=== PATIENT | female | born 1940 | race Caucasian/White ===

== ENCOUNTER 2020-02-07 11:59 | Outpatient (CLI) | payer OTHER, SELFPAY ==
[2020-02-07 12:30] LABS: Basophils Absolute Auto 0.1 K/mm3 (0.0-0.1); Basophils Percent Auto 0.8 % (0.2-1.2); Eosinophils Absolute Auto 0.1 K/mm3 (0-0.3); Eosinophils Percent Auto 1.3 % (0-4.4); Hematocrit 40.1 % (37.0-47.0); Immature Granulocyte Absolute 0.01 K/mm3 (0.00-0.031); Immature Granulocyte Percent A 0.2 % (0-0.5); Lymphocytes Absolute Auto 2.76 K/mm3 (0.9-3.2); Lymphocytes Percent Auto 45.5 % (18.3-44.2); Mean Corpuscular HGB Conc 32.4 g/dl (32-36); Mean Corpuscular Volume 92.4 fl (80-100); Mean Platelet Volume 9.6 fl (7.4-10.4); Monocytes Absolute Auto 0.7 K/mm3 (0.1-0.6); Monocytes Percent Auto 10.7 % (2.6-8.5); Neutrophils Absolute Auto 2.5 K/mm3 (1.3-6.7); Neutrophils Percent Auto 41.5 % (45.5-73.1); Platelet Count Result 251 k/mm3 (150-375); Red Blood Count 4.34 M/mm3 (4.2-5.4); Red Cell Distribution Width 13.1 % (11.5-14.5); White Blood Count 6.1 K/mm3 (4.5-10.0)
[2020-02-07 12:48] LABS: Alanine Aminotransferase 10 U/L (4-35); Albumin Level 4.5 g/dL (3.5-5.1); Alkaline Phosphatase 75 U/L (38-126); Aspartate Amino Transferase 25 U/L (14-36); Bilirubin,Total 0.5 mg/dL (0.2-1.3); Blood Urea Nitrogen 21 mg/dL (7-17); Calcium 9.4 mg/dL (8.4-10.2); Carbon Dioxide 29 mmol/L (22-30); Chloride 101 mmol/L (98-107); Cholesterol 257 mg/dL (0-200); Estimated Glomerular Filt Rate 48; Glucose 107 mg/dL (65-105); HDL Direct 38 mg/dL; Potassium 4.2 mmol/L (3.4-5.0); Sodium 139 mmol/L (137-145); Triglycerides 229 mg/dL (<150)
[2020-02-07 13:04] LABS: LDL Cholesterol Direct 151 mg/dL
[2020-02-07 13:20] LABS: Vitamin D 25 Hydroxy 36.5 ng/mL
== END 2020-02-07 12:00 | disposition home or self-care (01) ==
PROVIDERS: PCP Internal Medicine; Visit Provider Internal Medicine
DX: E78.5 Hyperlipidemia, unspecified (principal); R79.89 Other specified abnormal findings of blood chemistry; Z79.899 Other long term (current) drug therapy; F32.9 Major depressive disorder, single episode, unspecified
CPT/HCPCS: 36415; 80053; 80061; 82306; 84443; 85025

== ENCOUNTER 2023-05-03 15:11 | Emergency (ER) | payer OTHER, SELFPAY ==
--- NOTE | ~2023-05-03 | XR_ITS ---
EXAMINATION: XR lumbar spine 2-3V DATE: 05/03/2023 17:20 INDICATION: Low back pain TECHNIQUE: Anteroposterior and lateral views of the lumbar spine, and cone-down lateral view of the l umbosacral junction were obtained. COMPARISON: None. FINDINGS: There is an age-indeterminate anterior compression fracture of L1 with 20% loss of anterior vertebral body height. The remaining lumbar vertebral body heights are maintained. There is severe l oss of intervertebral disc space height at L2-3. Bone alignment is normal. 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 IMPRESSION: 1. Age-indeterminate anterior compression fracture of L1 with 20% loss of vertebral body height. 2. Severe lumbar spondylosis at L2-3. Reviewed, dictated and finalized at location F. IMPRESSION: 1. Age-indeterminate anterior compression fracture of L1 with 20% loss of verte bral body height. 2. Severe lumbar spondylosis at L2-3.
[2023-05-03 15:34] VITALS: BP 138/72; PULSE 61; RESP 18; TEMP 36.7; O2SAT 97
--- NOTE | 2023-05-03 17:48 | ED.BACK ---
HPI - Back Pain/Injury General Chief Complaint: Back Pain/Injury Stated Complaint: back injury/fall Time Seen by Provider: 05/03/23 16:56 History of Present Illness HPI Narrative: 82-year-old female presents to the emergency room for evaluation of a back injury. Patient states that she was removing an end table from her trunk of her vehicle when she attempted to close the trunk door and fell backwards landing on her buttocks. Patient states that she was ambulatory following the incident. Denies any radiating pain. No saddle anesthesia. No difficulty or changes with bowel or bladder habits. Patient states that she took a 400 mg of ibuprofen prior to arrival and achieved moderate pain relief. Related Data Home Medications Medication Instructions Recorded Confirmed ergocalciferol (vitamin D2) 50 mcg 50 mcg PO DAILY 09/02/22 01/03/23 (2,000 unit) capsule escitalopram oxalate 20 mg tablet 20 mg PO DAILY 09/02/22 01/03/23 levothyroxine 50 mcg capsule 50 mcg PO DAILY 09/02/22 01/03/23 mirtazapine 7.5 mg tablet 7.5 mg PO QHS 09/02/22 01/03/23 Allergies Allergy/AdvReac Type Severity Reaction Status Date / Time No Known Allergies Allergy NONE Verified 05/03/23 15:39 Review of Systems Review of Systems: CONSTITUTIONAL: Denies fever, chills, or sweats. EYES: Denies visual changes, redness, or discharge. ENT: Denies rhinorrhea, congestion, sore throat, or otalgia. CARDIOVASCULAR: Denies chest pain, palpitations, or edema. RESPIRATORY: Denies cough or dyspnea. GASTROINTESTINAL: Denies abdominal pain, nausea, vomiting, or diarrhea. GENITOURINARY: Denies dysuria or hematuria. SKIN: Denies rash or itching. MUSCULOSKELETAL: Reports low back pain NEUROLOGIC: Denies headache, numbness, dizziness, or weakness. PSYCHIATRIC: Denies anxiety or depression. [facility] Family History Family History Father Heart disease Mother Colon cancer Social History Social History Smoking status: Never smoker Alcohol intake: never Lack of Transportation: No Lack of Food: Never True Current Housing: I Have Housing Concerned About Future Housing: No Difficulty Paying Gas/Electric Bills: No Difficulty Paying for Meds: No Currently Unemployed: No Education: High School Diploma/GED Difficulty w/ Childcare or Family Care: No Exam Narrative: GENERAL: Well-appearing, well-nourished, no physical limitations, and in no acute distress. HEAD: Normocephalic, atraumatic. EYES: Conjunctivae normal, PERRLA and EOMI. CHEST: Clear to auscultation. No respiratory distress. No wheezes rales or rhonchi. HEART: Regular rate and rhythm. No murmur heard. Normal peripheral pulses. BACK: Midline lumbar tenderness at L5, no step-offs, no bony abnormality; FROM EXTREMITIES: Normal range of motion. No edema. No clubbing or cyanosis SKIN: Warm, dry, no rash. No noted wounds NEURO: No focal deficits. Alert and oriented x3. MAEW. CN's II-XI intact bilaterally, antalgic gait. Hyperreflexia right patellar DTR PSYCH: Cooperative. Normal mood and affect. Course Course Emergency Course: 1800: Discussed case with neurosurgeon Dr. Candelario regarding patient's radiology findings. Dr. Conner clears patient for regular activity. Vital Signs Vital signs: Vital Signs Temperature 36.7 C 05/03/23 15:34 Pulse Rate 61 05/03/23 15:34 Respiratory Rate 18 05/03/23 15:34 Blood Pressure 138/72 05/03/23 15:34 Pulse Oximetry 97 05/03/23 15:34 Oxygen Delivery Room Air 05/03/23 15:34 Temperature 36.7 C 05/03/23 15:34 Pulse Rate 61 05/03/23 15:34 Respiratory Rate 18 05/03/23 15:34 Blood Pressure 138/72 05/03/23 15:34 Pulse Oximetry 97 05/03/23 15:34 Oxygen Delivery Room Air 05/03/23 15:34 Discharge Plan Discharge Clinical Impression: Contusion of lower back Qualifiers: Encounter type: initial encoun
[2023-05-03 18:09] VITALS: BP 132/78; PULSE 68; RESP 16; O2SAT 100
== END 2023-05-03 18:11 | disposition home or self-care (01) ==
PROVIDERS: Emergency Provider Nurse Practitioner Family; PCP Family Medicine
DX: S30.0XXA Contusion of lower back and pelvis, initial encounter (principal); W18.39XA Other fall on same level, initial encounter
CPT/HCPCS: 72100; 99283

== ENCOUNTER 2023-05-18 17:01 | Outpatient (CLI) | payer OTHER, SELFPAY ==
--- NOTE | ~2023-05-18 | CT_ITS ---
EXAMINATION: CT lumbar spine wo con DATE: 05/18/2023 17:18 INDICATION: Dorsalgia, unspecified TECHNIQUE: Computed tomography (CT) of the lumbar spine was performed without intravenous contrast. Rashida he dose-length product (DLP) was 511.05 mGy-cm. Iterative reconstruction was used. COMPARISON: Radiographs dated 05/03/2023 FINDINGS: There has been interval worsening of the previously described L1 fracture. CT demonstrates the fracture to reflect a burst fracture with 5 mm of retropulsion of fracture fragments into the dayo tral spinal canal. There is essentially complete loss of height in the mid vertebral body. There is s evere loss of intervertebral disc space height at L2-3. There are 5 mm of retrolisthesis of L2 on L3. There is a subtle fracture of the left L1 transverse process.. IMPRESSION: 1. L1 burst fracture with significant interval worsening since the recent comparison examination. Octavio gical evaluation is recommended. Reviewed, dictated and finalized at location F. IMPRESSION: 1. L1 burst fracture with significant interval worsening since the recent josiane rison examination. Surgical evaluation is recommended.
== END 2023-05-18 17:02 | disposition home or self-care (01) ==
LOC: ANHIMG 17:04
PROVIDERS: PCP Family Medicine; Visit Provider Family Medicine
DX: S32.011A Stable burst fracture of first lumbar vertebra, initial encounter for closed fracture (principal); R29.898 Other symptoms and signs involving the musculoskeletal system; T14.90XA Injury, unspecified, initial encounter
CPT/HCPCS: 72131

== ENCOUNTER 2023-05-18 17:43 | Emergency (ER) | payer OTHER, SELFPAY ==
[2023-05-18 17:46] VITALS: BP 142/67; PULSE 100; RESP 16; TEMP 36.8; O2SAT 96
[2023-05-18 19:24] VITALS: PULSE 57; RESP 16; O2SAT 96
[2023-05-18 20:00] VITALS: PULSE 56; RESP 26; O2SAT 100
--- NOTE | 2023-05-18 20:02 | ED.GENADULT ---
HPI - General Adult General Chief complaint: Recheck/Abnormal Lab/Rx Stated complaint: sent from radiology for f/u Time Seen by Provider: 05/18/23 19:09 History of Present Illness HPI narrative: Patient 82-year-old female who presents emergency department with chief complaint of abnormal CT scan. Patient recently was seen in the emergency department and had a ground-level fall and was found to have a compression fracture at the L1 area was about 20% patient had no bowel or bladder dysfunction no paresthesias no foot drop. The patient has been taking tramadol as an outpatient followed up with her primary care provider who today decided to order CT scan as the patient was continued to have pain the patient has no new neurological symptoms no focal weakness no saddle anesthesia no bowel or bladder incontinence or retention patient Related Data Home Medications Medication Instructions Recorded Confirmed ergocalciferol (vitamin D2) 50 mcg 50 mcg PO DAILY 09/02/22 05/18/23 (2,000 unit) capsule escitalopram oxalate 20 mg tablet 20 mg PO DAILY 09/02/22 05/18/23 levothyroxine 50 mcg capsule 50 mcg PO DAILY 09/02/22 05/18/23 mirtazapine 7.5 mg tablet 7.5 mg PO QHS 09/02/22 05/18/23 Allergies Allergy/AdvReac Type Severity Reaction Status Date / Time No Known Allergies Allergy NONE Verified 05/18/23 19:18 Review of Systems Review of Systems: A 10 system review of systems was completed on the patient and is negative except for what is stated in the HPI. Nursing and ancillary documentation was reviewed. [facility] Family History Family History Father Heart disease Mother Colon cancer Social History Social History Smoking status: Never smoker Alcohol intake: never Lack of Transportation: No Lack of Food: Never True Current Housing: I Have Housing Concerned About Future Housing: No Difficulty Paying Gas/Electric Bills: No Difficulty Paying for Meds: No Currently Unemployed: No Education: High School Diploma/GED Difficulty w/ Childcare or Family Care: No Exam Narrative: GENERAL: Well-appearing, well-nourished, and in no acute distress. HEAD: Normocephalic, atraumatic. EYES: PERRLA and EOMI. ENT: Nares clear, no rhinorrhea or epistaxis. Mucous membranes moist. NECK: Supple. CHEST: Clear to auscultation. No respiratory distress. HEART: Regular rate and rhythm. No murmur heard. Normal peripheral pulses. ABDOMEN: Soft, nontender, nondistended, normal active bowel sounds. EXTREMITIES: Normal range of motion. No edema. SKIN: Warm, dry, no rash. NEURO: No focal deficits. Alert and oriented x3. No saddle anesthesia no foot drop PSYCH: Normal mood and affect. Course Vital Signs Vital signs: Vital Signs Temperature 36.8 C 05/18/23 17:46 Pulse Rate 100 05/18/23 17:46 Respiratory Rate 16 05/18/23 17:46 Blood Pressure 142/67 H 05/18/23 17:46 Pulse Oximetry 96 05/18/23 17:46 Oxygen Delivery Room Air 05/18/23 17:46 Temperature 36.8 C 05/18/23 17:46 Pulse Rate 100 05/18/23 17:46 Respiratory Rate 16 05/18/23 17:46 Blood Pressure 142/67 H 05/18/23 17:46 Pulse Oximetry 96 05/18/23 17:46 Oxygen Delivery Room Air 05/18/23 17:46 Medical Decision Making MDM Narrative Medical decision making narrative: The CT scan was reviewed that showed a transverse process fracture of L1 and a compression fracture/burst fracture of L1 No signs of acute nerve compression no saddle anesthesia no urinary retention no foot drop The case was discussed with neurosurgery on-call who stated the patient would benefit from a brace and the patient could either follow-up as an outpatient or if she was having severe pain the patient could be admitted to the hospitalist service neurosurgery would consult on the patient and would attempt to get a brace placed
[2023-05-18 20:15] VITALS: PULSE 61; RESP 14
== END 2023-05-18 20:44 | disposition home or self-care (01) ==
PROVIDERS: Emergency Provider Emergency Medicine; PCP Family Medicine
DX: S32.011A Stable burst fracture of first lumbar vertebra, initial encounter for closed fracture (principal); W18.30XA Fall on same level, unspecified, initial encounter
CPT/HCPCS: 72131; 99281

== ENCOUNTER 2023-07-04 13:55 | Outpatient (CLI) | payer OTHER, SELFPAY ==
[2023-07-04 18:29] LABS: Alanine Aminotransferase 13 U/L (6-35); Albumin Level 4.2 g/dL (3.5-5.1); Alkaline Phosphatase 86 U/L (38-126); Anion Gap 10 mmol/L (8-16); Aspartate Amino Transferase 43 U/L (14-36); Bilirubin,Total 0.5 mg/dL (0.2-1.3); Blood Urea Nitrogen 17 mg/dL (7-17); Calcium 9.2 mg/dL (8.4-10.2); Carbon Dioxide 30 mmol/L (22-30); Chloride 100 mmol/L (98-107); Cholesterol 245 mg/dL (0-200); Estimated Glomerular Filt Rate 53; Glucose 94 mg/dL (65-110); HDL Direct 40 mg/dL; Potassium 3.9 mmol/L (3.4-5.0); Sodium 140 mmol/L (137-145); Triglycerides 156 mg/dL (<150)
[2023-07-04 18:40] LABS: LDL Cholesterol Direct 141 mg/dL
[2023-07-04 19:17] LABS: Free T4 Free Thyroxine 1.58 ng/mL (0.78-2.19); Vitamin D 25 Hydroxy 34.7 ng/mL
== END 2023-07-04 13:56 | disposition home or self-care (01) ==
LOC: ANHGOSHLAB 13:57
PROVIDERS: PCP Family Medicine; Visit Provider Family Medicine
DX: E03.9 Hypothyroidism, unspecified (principal); E55.9 Vitamin D deficiency, unspecified; Z13.220 Encounter for screening for lipoid disorders; Z13.228 Encounter for screening for other metabolic disorders
CPT/HCPCS: 36415; 80053; 80061; 82306; 84439; 84443

== ENCOUNTER 2023-08-07 12:18 | Outpatient (CLI) | payer OTHER, SELFPAY ==
--- NOTE | ~2023-08-07 | XR_ITS ---
EXAMINATION: XR thoracolumbar INDICATION: Stable burst fracture of unspecified lumbar vertebra TECHNIQUE: Flexion and extension views of the thoracolumbar spine are obtained. COMPARISON: 05/10/2023 FINDINGS: There is a stable L1 burst fracture. No hypermobility of the spine is noted with flexion or extension. No additional fracture is identified. There is severe loss of intervertebral disc space h eight at L2-3. IMPRESSION: 1. Stable L1 burst fracture. Reviewed, dictated and finalized at location B. UNICATION MANAGER
== END 2023-08-07 12:19 | disposition home or self-care (01) ==
LOC: ANHIMG 12:19
PROVIDERS: PCP Family Medicine; Visit Provider Physician Assistant
DX: S32.001D Stable burst fracture of unspecified lumbar vertebra, subsequent encounter for fracture with routine healing (principal); X58.XXXD Exposure to other specified factors, subsequent encounter
CPT/HCPCS: 72080

== ENCOUNTER 2023-08-12 12:28 | Outpatient (CLI) | payer OTHER, SELFPAY ==
--- NOTE | ~2023-08-12 | MR_ITS ---
EXAMINATION: MR lumbar spine wo con DATE: 08/12/2023 13:14 INDICATION: Stable burst fracture of unspecified lumbar vertebra. Low back pain. TECHNIQUE: Magnetic resonance imaging (MRI) of the lumbar spine was performed without intravenous con trast. Sequences included sagittal T2-weighted FSE, sagittal T2-weighted FS FSE, sagittal T1-weighted FSE, and axial T2-weighted FSE. COMPARISON: CT lumbar spine 05/18/2023 FINDINGS: There is a burst fracture of L1 with greater than 4/5 loss of height, retropulsion of bone 7 mm into central spinal canal, edema-like marrow signal intensity, mild central canal stenosis, and focal kyphosis. There is 6 mm retrolisthesis of L2 on L3. There is severely decreased disc height at L2-L3 and moderately decreased disc height at L3-L4 with endplate remodeling. The distal spinal cord signal intensity is normal. The conus medullaris is at L1-L2. The following disc levels are specifica lly discussed: L1-L2: The disc is mildly bulging. There is moderate bilateral facet joint osteoarthritis. There is m ild bilateral neural foraminal stenosis. There is no central canal stenosis. L2-L3: The disc is bulging and has an annular fissure. There is mild bilateral facet joint osteoarthr itis. There is mild bilateral neural foraminal stenosis. There is mild central canal stenosis. L3-L4: The disc is bulging and has an annular fissure. There is moderate bilateral facet joint osteoa rthritis. There is mild bilateral neural foraminal stenosis. There is mild central canal stenosis. L4-L5: The disc is bulging and has an annular fissure. There is mild right and moderate left facet april int osteoarthritis. There is mild bilateral neural foraminal stenosis. There is mild central canal st enosis. L5-S1: The disc is bulging and has an annular fissure. There is severe bilateral facet joint osteoart hritis. There is mild bilateral neural foraminal stenosis. There is mild central canal stenosis. IMPRESSION: 1. Subacute L1 burst fracture, stable from 05/18/2023. 2. Severe lumbar spondylosis. Reviewed, dictated and finalized at location E. OFABRICATION ENGINEER MANAGER
== END 2023-08-12 12:29 | disposition home or self-care (01) ==
PROVIDERS: PCP Family Medicine; Visit Provider Physician Assistant
DX: S32.001A Stable burst fracture of unspecified lumbar vertebra, initial encounter for closed fracture (principal); M43.06 Spondylolysis, lumbar region
CPT/HCPCS: 72148

== ENCOUNTER 2023-09-28 13:58 | Outpatient (CLI) | payer OTHER, SELFPAY ==
--- NOTE | ~2023-09-28 | CT_ITS ---
EXAMINATION: CT lumbar spine wo con DATE: 09/28/2023 14:24 INDICATION: Stable burst fracture of unspecified lumbar vertebra. TECHNIQUE: Computed tomography (CT) of the lumbar spine was performed without intravenous contrast. A utomated exposure control and iterative reconstruction technique were employed. The dose-length produ ct was 472.64 mGy-cm. COMPARISON: CT lumbar spine 05/18/2023, MRI 08/12/2023 FINDINGS: There is a burst fracture of L1 with vertebral plana and 8 mm retrolisthesis of bone into c entral spinal canal. There is 11 degrees dextroscoliosis and focal kyphosis at L1. There is 5 mm retr olisthesis of L2 on L3. There is mild chronic anterior wedging of L2 vertebral body. There is mildly decreased disc height at L1-L2, severely decreased disc height at L2-L3, and mildly decreased disc at L3-L4. The following disc levels are specifically discussed: T12-L1: The disc does not extend beyond the endplate margin. There is mild bilateral facet joint oste oarthritis. There is mild left neural foraminal stenosis. There is moderate central canal stenosis. L1-L2: The disc is bulging. There is mild bilateral facet joint osteoarthritis. There is no neural fo raminal stenosis. There is mild central canal stenosis. L2-L3: The disc does not extend beyond the endplate margin. There is mild bilateral facet joint osteo arthritis. There is mild bilateral neural foraminal stenosis. There is mild central canal stenosis. L3-L4: The disc is bulging. There is moderate right and mild left facet joint osteoarthritis. There i s mild bilateral neural foraminal stenosis. There is mild central canal stenosis. L4-L5: The disc is bulging. There is severe right and moderate left facet joint osteoarthritis. There is mild bilateral neural foraminal stenosis. There is mild central canal stenosis. L5-S1: The disc is bulging. There is severe bilateral facet joint osteoarthritis. There is mild bilat eral neural foraminal stenosis. There is mild central canal stenosis. IMPRESSION: 1. Subacute L1 burst fracture, worsened from 05/18/2023. 2. Severe lumbar spondylosis. Reviewed, dictated and finalized at location E. HIATRY INSTRUCTOR
== END 2023-09-28 13:59 | disposition home or self-care (01) ==
PROVIDERS: PCP Family Medicine; Visit Provider Neurological Surgery
DX: S32.011A Stable burst fracture of first lumbar vertebra, initial encounter for closed fracture (principal); M43.06 Spondylolysis, lumbar region
CPT/HCPCS: 72131

== ENCOUNTER 2025-04-16 13:08 | Outpatient (CLI) | payer OTHER, SELFPAY ==
--- OUTSIDE RECORDS SUMMARY | 2025-04-16 13:20 | XMS_ITS | Patient Health Record ---
Author Organization [facility] [place] Address [address] [place] [address] Care Team Providers Care Analytics Developer Name Role Phone Luis Alexander DO Primary Care Provider Unavailab Marcell Ghosh Unavailable [phone] Allergies No Known Allergies Reason For Referral No Information Medications Medication SIG (Take, Route, Frequency, Duration) Notes Start Date End Date Status Mirtazapine 7.5 MG Tablet 1 tablet at be dtime Oral Once a day; Duration: 90 days Active Escitalopram Oxalate 20 MG Tablet 1 tablet Oral Once a day; Duration: 90 days Active Levothyroxine Sodium 50 MCG Tablet Oral 12/11/2023 Not-Taking Ergocalciferol 1.25 MG (11974 UT) Capsule Oral 12/11/2023 Not-Takin g traMADol HCl 50 MG Tablet Oral 12/11/2023 Not-Taking Immunizations Vaccine Route Administration Date Status Comme nts Influenza, high dose seasonal Unknown 07/03/2018 Admini stered Influenza, high dose seasonal Unknown 05/21/2019 Admini stered Influenza, high dose seasonal Unknown 09/25/2019 Admini stered Influenza, high-dose seasona l, quadrivalent, preservative free >65 yrs Unknown 05/21/2020 Administered Pfizer Bion[employer] Covid-19 Vac cine 2nd dose Unknown 11/20/2020 Administered Pfizer [employer] Covid-19 Vac cine 2nd dose Unknown 12/11/2020 Administered Pfizer [employer] Covid-19 Vac cine 2nd dose Unknown 09/02/2021 Administered Pneumococcal conjugate PCV 13 Unknown 05/21/2019 Admini stered Pneumococcal polysaccharide PPV23 Unknown 05/21/2020 Ad ministered Td (adult) preservative free Unknown 04/13/2020 Adminis tered Social History Tobacco Use: Social History Observation Description Date Details (start date - stop date) Never Smoker NA - NA Sex Assigned At : Social History Observation Description Sex Assigned At Female Social History Tobacco Use: Social Info Question Answer Notes Tobacco Control (Standard) Tobacco use: Nonsmoker Additional Details Category Social Info Options Details Migrated Social History Migrated Social History Alcohol Intake: None 03/12/2020,Tobacco Years: Former smoker 03/12/2020 Problems Problem Type SNOMED Code ICD Code Onset Dates Problem Status W/U Status Risk Notes Problem Hypothyroidism (42032161) Hypothyroidism, unspecified (E03.9) 4 Active confirmed Problem Major depressive disorder, recurrent, mild (F33.0) 4 Active confirmed Problem Primary insomnia (5736956) Primary insomnia (F51.01) 4 Active confirmed Vital Signs Heart Rate 75 /min 11/20/2024 Height-cm 160.02 cm 11/20/2024 Blood pressure diastolic 85 mm Hg 11/20/2024 Weight-kg 62.6 kg 11/20/2024 Height 63.00 in 11/20/2024 Blood pressure systolic 137 mm Hg 11/20/2024 Weight 138 lbs 11/20/2024 BMI 24.44 kg/m2 11/20/2024 Encounters Encounter Location Date Provider Diagnosis [facility] [place] [address] [address] 04/25/2024 Marcell Gillis Primary insomnia F51 .01 ; Major depressive disorder, recurrent, mild F33.0 and Hypothyroidism, unspecified E03.9 [facility] [place] [address] [address] 10/23/2024 Marcell Gillis [facility] [place] [address] [facility] [address] [place] [address] 11/20/2024 Marcell Gillis Major depressive disorder, recurrent, mild F33.0 ; Primary insomnia F51.01 ; Encounter for screening for cardiovascular disorders Z13.6 and Hypothyroidism, unspecified E03.9 [facility] [place] [address] [address] 10/23/2024 Marcell Gillis Primary insomnia F51 .01 and Major depressive disorder, recurrent, mild F33.0 Assessments Encounter Date Diagnosis (ICD Code) Assessment Notes Treatment Notes Treatment Clinical Notes Section Notes 04/25/2024 Primary insomnia (ICD-10 - F51.01) mirtazapine 7.5mg daily at bedtime 1. Fatigue and physical limitations: - Patient reports feeling worn out after completing household tasks and experiencing pain and stiffness. She acknowledges her age as a contributing factor but struggles with adjusting her activity level accordingly. Plan: - Encourage the patient to pace herself and consider breaking tasks into smaller, manageable portions. - Recommend discussing with her primary care provider if the fatigue and pain persist or worsen. 2. Mood and depression: - Patient denies any current depressive symptoms and reports a stable mood. She is currently taking escitalopram 20 mg daily. Plan: - Continue escitalopram 20 mg daily for depression. - Send a 90-day supply with one refill to [facility] in [place]. 3. Insomnia: - Patient reports occasional difficulty sleeping, possibly related to environmental factors such as room temperature. She is currently taking mirtazapine 7.5 mg at bedtime for sleep. Plan: - Continue mirtazapine 7.5 mg daily for insomnia. - Send a 90-day supply with one refill to [facility] in [place]. 4. Bupropion discontinuation : - Patient reports not taking bupropion anymore and believes it was discontinued by the provider. As the patient is doing well without it, no need to reintroduce bupropion at this time. 5. Weight loss: - Patient reports a weight loss of approximately 12 pounds. Plan: - Monitor weight during future visits and encourage the patient to maintain a healthy diet and exercise routine. 6. Follow-up: - Schedule a follow-up appointment in six months, as the patient has been stable on her current medication regimen and no changes have been made recently. 10/23/2024 Primary insomnia (ICD-10 - F51.01) 11/20/2024 Major depressive disorder, recurrent, mild (ICD-10 - F33.0) cont escitalopram 20mg daily 1 11/20/2024 Primary insomnia (ICD-10 - F51.01) mirtazapine 7.5mg daily at bedtime 1 04/25/2024 Major depressive disorder, recurrent, mild (ICD-10 - F33.0) cont escitalopram 20mg daily 1. Fatigue and physical limitations: - Patient reports feeling worn out after completing household tasks and experiencing pain and stiffness. She acknowledges her age as a contributing factor but struggles with adjusting her activity level accordingly. Plan: - Encourage the patient to pace herself and consider breaking tasks into smaller, manageable portions. - Recommend discussing with her primary care provider if the fatigue and pain persist or worsen. 2. Mood and depression: - Patient denies any current depressive symptoms and reports a stable mood. She is currently taking escitalopram 20 mg daily. Plan: - Continue escitalopram 20 mg daily for depression. - Send a 90-day supply with one refill to [facility] in [place]. 3. Insomnia: - Patient reports occasional difficulty sleeping, possibly related to environmental factors such as room temperature. She is currently taking mirtazapine 7.5 mg at bedtime for sleep. Plan: - Continue mirtazapine 7.5 mg daily for insomnia. - Send a 90-day supply with one refill to [facility] in [place]. 4. Bupropion discontinuation : - Patient reports not taking bupropion anymore and believes it was discontinued by the provider. As the patient is doing well without it, no need to reintroduce bupropion at this time. 5. Weight loss: - Patient reports a weight loss of approximately 12 pounds. Plan: - Monitor weight during future visits and encourage the patient to maintain a healthy diet and exercise routine. 6. Follow-up: - Schedule a follow-up appointment in six months, as the patient has been stable on her current medication regimen and no changes have been made recently. 10/23/2024 Major depressive disorder, recurrent, mild (ICD-10 - F33.0) 11/20/2024 Encounter for screening for cardiovascular disorders (ICD-10 - Z13.6) 1 04/25/2024 Hypothyroidism, unspecified (ICD-10 - E03.9) 1. Fatigue and physical limitations: - Patient reports feeling worn out after completing household tasks and experiencing pain and stiffness. She acknowledges her age as a contributing factor but struggles with adjusting her activity level accordingly. Plan: - Encourage the patient to pace herself and consider breaking tasks into smaller, manageable portions. - Recommend discussing with her primary care provider if the fatigue and pain persist or worsen. 2. Mood and depression: - Patient denies any current depressive symptoms and reports a stable mood. She is currently taking escitalopram 20 mg daily. Plan: - Continue escitalopram 20 mg daily for depression. - Send a 90-day supply with one refill to [facility] in [place]. 3. Insomnia: - Patient reports occasional difficulty sleeping, possibly related to environmental factors such as room temperature. She is currently taking mirtazapine 7.5 mg at bedtime for sleep. Plan: - Continue mirtazapine 7.5 mg daily for insomnia. - Send a 90-day supply with one refill to [facility] in [place]. 4. Bupropion discontinuation : - Patient reports not taking bupropion anymore and believes it was discontinued by the provider. As the patient is doing well without it, no need to reintroduce bupropion at this time. 5. Weight loss: - Patient reports a weight loss of approximately 12 pounds. Plan: - Monitor weight during future visits and encourage the patient to maintain a healthy diet and exercise routine. 6. Follow-up: - Schedule a follow-up appointment in six months, as the patient has been stable on her current medication regimen and no changes have been made recently. 11/20/2024 Hypothyroidism, unspecified (ICD-10 - E03.9) 1 11/20/2024 Other Delia Salazar, an elderly female patient with a history of back pain and hysterectomy, presents for routine follow-up with no current complaints of depression. Depression (in remission) Assessment: Patient denies current depressive symptoms. She maintains a positive attitude despite chronic back pain, attributing her resilience to her jose. Sleep and appetite are reported as good. The patient continues to take mirtazapine with apparent benefit. Plan: - Continue mirtazapine (current dose not specified) - Follow up in 6 months - Refill medication through [facility] pharmacy Chronic back pain Assessment: Patient reports ongoing back pain, which limits her ability to perform desired activities. 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 The pain is attributed to broken vertebrae, which the patient believes contributes to lack of abdominal support and apparent weight gain around the midsection. Plan: - Continue current pain management strategy with ibuprofen as needed - Encourage adaptation of activities to manage pain levels Hearing difficulty Assessment: Patient reports difficulty hearing, particularly with certain volumes and lower-pitched voices. She expresses interest in obtaining a hearing aid to address this issue. Plan: - Patient to pursue obtaining a hearing aid independently the note is transcribed using speech recognition software. It is a reflection of a visit with the patient. It might have some inaccuracy, including medication names and transcribing errors, though efforts have been made to correct them. 1 Plan Of Treatment Next Appt Details Provider Name:Marcell leavitt, 04/22/2025 02:00:00 PM, [address], [facility] [address], [place], [address], Insurance Providers Payer Name Payer Address Payer Phone Subscriber Number Group Number Insured Name Patient Relationship to Insured Coverage Start Date Coverage End Date [employer] Re[employer]/ [employer]vantage - [employer]mo [address] [place] [address] [id number] DELIA SALAZAR Self - patient is the insured Medical (General) History Medical History History ICD Code Problems: Chronic constipation Hypothyroidism Long-term current use of drug therapy Malaise and fatigue Mild recurrent major depression Primary insomnia Recurrent major depression in full remis crys , Surgical History Surgery Date(Month/Year) Hysterectomy/revise vagina (87660) Hysterectomy (84516) 01/20/1980 Other 01/20/1980 Cataract surgery (39425) 04/21/2016
[2025-04-16 13:52] LABS: Hematocrit 38.2 % (37.0-47.0); Hemoglobin 12.3 g/dL (12.0-15.0); Immature Granulocyte Percent A 0.4 % (0-0.5); Lymphocytes Absolute Auto 1.88 K/mm3 (0.9-3.2); Mean Corpuscular HGB Conc 32.2 g/dl (32-36); Mean Corpuscular Hemoglobin 30.3 pg (26-34); Mean Corpuscular Volume 94.1 fl (80-100); Nucleated Red Blood Cells Absolute Auto 0.000 K/mm3 (0.0-0.012); Nucleated Red Blood Cells Perc 0.0 % (0.0-0.2); Platelet Count Result 254 k/mm3 (150-375); Red Blood Count 4.06 M/mm3 (4.2-5.4); White Blood Count 7.3 K/mm3 (4.5-10.0)
[2025-04-16 14:14] LABS: Alanine Aminotransferase 12 U/L (6-35); Albumin Level 4.2 g/dL (3.5-5.1); Alkaline Phosphatase 88 U/L (38-126); Anion Gap 7 mmol/L (4-12); Aspartate Amino Transferase 35 U/L (14-36); Bilirubin,Total 0.5 mg/dL (0.2-1.3); Blood Urea Nitrogen 13 mg/dL (7-17); Calcium 9.0 mg/dL (8.4-10.2); Carbon Dioxide 27 mmol/L (22-30); Chloride 104 mmol/L (98-107); Cholesterol 251 mg/dL (0-200); Estimated Glomerular Filt Rate 58; Glucose 97 mg/dL (65-110); HDL Direct 44 mg/dL; Potassium 4.5 mmol/L (3.4-5.0); Sodium 138 mmol/L (137-145); Total Protein 8.5 g/dL (6.3-8.2); Triglycerides 125 mg/dL (<150)
[2025-04-16 14:31] LABS: Free T4 Free Thyroxine 1.06 ng/dL (0.78-2.19)
[2025-04-16 14:49] LABS: Thyroid Stimulating Hormone 3.700 uIU/mL (0.465-4.680)
[2025-04-16 16:37] LABS: Vitamin B12 302.0 pg/mL (239-931)
== END 2025-04-16 13:09 | disposition home or self-care (01) ==
PROVIDERS: PCP Family Medicine; Visit Provider Family Medicine
DX: E78.5 Hyperlipidemia, unspecified (principal); F33.2 Major depressive disorder, recurrent severe without psychotic features; R79.89 Other specified abnormal findings of blood chemistry; Z78.0 Asymptomatic menopausal state; R29.818 Other symptoms and signs involving the nervous system; Z00.00 Encounter for general adult medical examination without abnormal findings; M54.50 Low back pain, unspecified; E55.9 Vitamin D deficiency, unspecified
CPT/HCPCS: 36415; 80053; 80061; 82172; 82306; 82607; 84439; 84443; 85025